=== PATIENT | male | born 1970 | race Caucasian/White ===

== ENCOUNTER 2023-11-02 02:57 | Emergency (ER) | payer BC, SELFPAY ==
[2023-11-02 02:57] VITALS: BMI 25.8
[2023-11-02 02:59] VITALS: BP 144/86
--- NOTE | 2023-11-02 03:27 | ED.GENMED ---
History of Present Illness
General
Chief Complaint: Abdominal Pain
Time Seen by Provider: 11/02/23 03:09
Travel History
Have you had any contact with someone who has COVID-19?: No
Do you have any symptoms of coronavirus? Fever > 100 degrees, chills, cough, shortness of breath, sore throat, loss of taste or smell, muscle aches, or headache?: No
History of Present Illness
History of Present Illness:
HPI: Patient presents with right lower quadrant pain. Last week he had an episode of gross hematuria. He has had an appendectomy in the past. He has had kidney stones in the past but this feels somewhat different as the pain is more anteriorly
located as opposed to any significant back pain.
EXAM:
GENERAL: Well appearing in no distress
HEENT: Moist oral mucosa
CARDIOVASCULAR: No murmurs, normal heart rate, regular rhythm, No chest wall tenderness
PULMONARY: No respiratory distress, breath sounds are clear and equal
ABDOMEN: Soft with no peritoneal signs, no tenderness of some tenderness along the right mid axillary line of the abdomen
NEUROLOGIC: Excellent strength all extremities, no coordination deficits
PSYCHIATRIC: Appropriate mental status, normal insight and judgement
EXTREMITIES: Nontender, no edema, moves all extremities equally
SKIN: No rash, no lesions
TIME OF INITIAL ENCOUNTER: 3:15 AM
NUMBER AND COMPLEXITY OF PROBLEMS ADDRESSED AT THE ENCOUNTER
� Chronic conditions affecting care: Has had kidney stones, hyperlipidemia, appendectomy
� Acute Exacerbation and/or Progression of Chronic Illness: This is an acute problem
� Differential Diagnosis includes: Ureteral stone/colic, UTI, status post appendectomy, oblique muscle strain
AMOUNT AND/OR COMPLEXITY OF DATA TO BE REVIEWED AND ANALYZED
� I performed an independent evaluation of and my interpretation is:
EKG:
CT: I personally reviewed CT imaging and agree with radiologist interpretation that there is a 5 mm stone in the mid right ureter
X-rays:
Laboratory Studies: CBC and chemistries unremarkable, urinalysis does not show any sign of infection
Other:
� Review of other/old records: I reviewed colonoscopy report from 2019, diverticulosis was seen and polyps were removed.
� Clinical information was obtained by an independent historian: Spoke to at bedside
� Prescriptions/Medications Considered but not given:
� Further testing considered but not performed:
RISK OF COMPLICATIONS AND/OR MORBIDITY OR MORTALITY OF PATIENT MANAGEMENT
� Social determinants of health affecting care: Lives at home
� Discussion with other providers:
� Escalation of care including admission/observation vs risk of discharge considered: The patient only had very mild symptoms upon arrival but we did give a dose of Toradol and fluids. CT does show a 5 mm mid ureteral stone
however the patient appears comfortable throughout her stay in the ED. On reassessment at 5 AM, the patient feels significant improved after Toradol. He feels comfortable with going home. He is to follow-up with urology as an outpatient.
Phy Exam
Physical Exam
Physical Exam:
See HPI
Course
Orders/Labs/Results
Orders:
Orders
11/02/23 03:31
CT Abd/pel Without Iv Or Oral Urgent
Comment:
Reason For Exam: RLQ pain; prior kidney stones; had appy
11/02/23 03:37
0.9% Sodium Chloride 1000 ml [Nss] 1,000 ml IV BOLUS
Ketorolac [Toradol] 15 mg IV NOW STA
11/02/23 03:44
Complete Blood Count/With Diff Urgent
Comprehensive Metabolic Panel Urgent
Lipase Urgent
Urinalysis Reflex To Culture Urgent
Date Specimen was Collected: 11/02/23
Time Specimen was Collected: 03:37
Urine Microscopic Reflex Cult Urgent
Abnormal Lab Results
11/02/23
03:44
WBC 4.4 L 10^3/uL
(4.8-10.8)
RBC 4.41 L 10^6/uL
(4.70-6.10)
MCH 32.0 H pg
(27.0-31.0)
Absolute Lymphs (auto) 1.0 L 10^3/uL
(1.2-3.4)
Monocytes % 9.8 H %
(1.7-9.3)
BUN 21 H mg/dl
(9-20)
Glucose 109 H mg/dl
(70-99)
ALT 54 H U/L
(0-50)
Ur Occult Blood Reflex 4+ A
(Negative)
Urine RBC 50-60 A /HPF
(0-2)
11/02/23 03:44
11/02/23 03:44
Vital Signs
Initial and Last Documented VS:
Initial Vital Signs
Temp Pulse Resp BP Pulse Ox
97.8 F 86 16 144/86 97
11/02/23 02:59 11/02/23 02:59 11/02/23 02:59 11/02/23 02:59 11/02/23 02:59
Last Documented Vital Signs
Temp Pulse Resp BP Pulse Ox
97.8 F 86 16 144/86 97
11/02/23 02:59 11/02/23 02:59 11/02/23 02:59 11/02/23 02:59 11/02/23 02:59
*Critical Care Note
Total Time (30-74mins, 75-104mins- exclusive of procedures): Not Applicable
ED Attending Note
-
Portions of this chart may have been created with voice recognition software.� Occasional wrong word or��sound alike� substitutions may have occurred due to the inherent limitations of voice recognition software.
Discharge Plan
Departure
Patient Disposition: Home (Routine Discharge)
Date of Disposition: 11/02/23
Time of Disposition: 05:12
Patient with high blood pressure during this ER visit?: Yes
Discharge Problem:
Ureteral stone
Instructions: Kidney Stone, Adult ED, Kidney stone diet
Prescriptions:
New
oxycodone-acetaminophen [Endocet] 5-325 mg tablet
1 - 2 tab PO Q6H PRN (Reason: Pain) Qty: 14 0RF
ondansetron HCl 4 mg tablet
4 mg PO Q6H PRN (Reason: nausea and vomiting) Qty: 14 0RF
tamsulosin [Flomax] 0.4 mg capsule
0.4 mg PO DAILY Qty: 14 0RF
Referrals:
Blayne Chavez MD [Active] - Follow up in 2-3 days
Nichol Lacy MD [Family Provider] -
Activity Restrictions/Additional Instructions:
I have given you the contact information for local urologist, Dr. Chavez. Your blood work is unremarkable. Urinalysis does not show any signs of infection but does show some blood which is expected in the setting of a kidney stone. You do have a
5 mm stone located in the mid right ureter. Return here if worse. If you take Percocet I recommend he take something like MiraLAX to help prevent constipation. I recommend 3-4 [id number] ibuprofen (Motrin) every 8 hours with food for a few
days.
Interventions
Interventions:
*Risk Screen - Suicide Last Done: 11/02/23 02:59
*General Assessment Last Done: 11/02/23 02:59
*Neglect/Abuse Screening Last Done: 11/02/23 02:59
ED- Fall Risk Assessment Last Done: 11/02/23 03:50
NI-Dflvil-Dwbxvrwnel Assessment Last Done: 11/02/23 03:50
Discharge Date and Time
Print Language: SYRIAN
[2023-11-02 03:53] LABS: % Basophils 0.9 % (0-2); % Eosinophils 3.4 % (0-6); % Immature Granulocytes 0.2 % (0-0.5); % Lymphocytes 23.2 % (20.5-51.1); % Monocytes 9.8 % (1.7-9.3); % Neutrophils 62.5 % (42.2-75.2); Absolute Eosinophils 0.2 10^3/uL (0-0.7); Absolute Monocytes 0.4 10^3/uL (0.1-0.6); Absolute Neutrophils 2.8 10^3/uL (1.4-6.5); Hematocrit 39.8 % (39.0-52.0); Hemoglobin 14.1 g/dL (13.0-18.0); Mean Corp Hgb Conc. 35.4 g/dL (33.0-37.0); Mean Corpuscular Volume 90.2 fL (80.0-94.0); Mean Platelet Volume 9.2 fL (7.4-10.4); Nucleated Red Blood Cells % 0 % (-); Platelet Count 237 10^3/uL (130-400); Red Blood Cell Count 4.41 10^6/uL (4.70-6.10); Red Cell Dist. Width 13.2 % (11.5-14.5); White Blood Cell Count 4.4 10^3/uL (4.8-10.8)
[2023-11-02 03:54] LABS: Urine Albumin Negative (Neg - Trace); Urine Bilirubin Negative (Negative); Urine Character Clear (Clear); Urine Color Yellow; Urine Glucose Negative (Negative); Urine Ketone Negative (Negative); Urine Leukocyte Negative (Negative); Urine Nitrite Negative (Negative); Urine Occult Blood 4+ (Negative); Urine Urobilinogen Negative (Neg - 1+)
[2023-11-02] MEDS: NSS 1000 IV (03:57)
[2023-11-02] MEDS: TORADOL 15 MG IV (03:57)
[2023-11-02 04:07] LABS: Urine Red Blood Cell 50-60 /HPF (0-2); Urine White Cell None Seen /HPF (0-5)
[2023-11-02 04:25] LABS: ALT (SGPT) 54 U/L (0-50); AST (SGOT) 40 U/L (17-59); Albumin 4.3 g/dl (3.5-5.0); Alkaline Phosphatase 61 U/L (38-126); Blood Urea Nitrogen 21 mg/dl (9-20); Calcium 9.8 mg/dl (8.4-10.2); Carbon Dioxide 25 mmol/L (22-30); Chloride 106 mmol/L (98-107); Glucose 109 mg/dl (70-99); Lipase 185 U/L (23-300); Potassium 4.7 mmol/L (3.5-5.1); Sodium 142 mmol/L (135-145); Total Bilirubin 0.6 mg/dl (0.2-1.3); Total Protein 6.8 g/dl (6.3-8.2); eGFR > 60.00
[2023-11-02 05:47] VITALS: BP 136/93
== END 2023-11-02 05:47 | disposition home or self-care (01) ==
LOC: EMR 02:57
PROVIDERS: EMERGENCY PHYSICIAN Emergency Medicine; FAMILY PHYSICIAN Internal Medicine
DX: N13.2 Hydronephrosis with renal and ureteral calculous obstruction (principal); N40.0 Benign prostatic hyperplasia without lower urinary tract symptoms; Z87.442 Personal history of urinary calculi
CPT/HCPCS: 99284; 96374; 96361; 74176; 80053; 81003; 81015; 83690; 85025